=== PATIENT | female | born 1965 | race Caucasian/White ===

== ENCOUNTER 2023-10-16 09:34 | Emergency (ER) | payer OTHER, SELFPAY ==
[2023-10-16] VITALS (11 sets, daily range): BP systolic 152–184; BP diastolic 90–111; PULSE 76–84; RESP 13–26; TEMP 36.8; O2SAT 93–97; BMI 37.9
--- NOTE | 2023-10-16 09:42 | ECG_ITS ---
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
--- NOTE | 2023-10-16 09:42 | CT_ITS ---
The [address] [address] Patient Name: ADRIANE THAPA MRN: [id number] date: 1965 Sex: F Assigned Patient Location: ER Current Patient Location: ER Accession/Order Number: [id number] Exam Date: 10/16/2023 10:07 Report Date: 10/16/2023 10:25 At the request of: BARRERA OLVERA Procedure: CT head/brain wo con EXAM: CT head/brain wo con HISTORY: htn COMPARISON: None. TECHNIQUE: Axial CT images were obtained of the head without intravenous contrast. Multiplanar reconstructions were performed. FINDINGS: No acute intracranial hemorrhage. No acute loss of hodgson/white differentiation. The ventricles and sulci are normal in appearance. The osseous structures are unremarkable. No soft tissue abnormality identified. The paranasal sinuses and mastoid air cells are clear. CT/CT head/brain wo con IMPRESSION: 1. No acute intracranial abnormality. Electronically authenticated by: CATHY CEDEÑO Date: 10/16/2023 10:25
--- NOTE | 2023-10-16 09:44 | ED.GENADUL1 ---
HPI - General Adult General Chief complaint: Chest Pain Stated complaint: HIGH BLOOD PRESSURE Time Seen by Provider: 10/16/23 09:42 History of Present Illness HPI narrative: Patient is a 57-year-old female who is presenting to the Emergency Room with chief complaint of ongoing hypertension, headaches, and intermittent chest tightness. Patient says that she will intermittently feels sharp tingling prickling sensation to left anterior chest with no radiation for the past week or 2. Patient's been having headaches to left parietal area. Patient having mild neck pain. 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 Patient smokes cigarettes. Patient states the stress has been causing some neck pain and headaches. Patient went to the office today for blood pressure recheck for Flex Blanchard, nurse practitioner. Patient blood pressure is elevated, they called Dayna Blanchard who is not in the office and recommended patient come to the Emergency Room for evaluation. Patient drove to the Emergency Room. . All systems are negative except as noted/marked. All systems reviewed and otherwise negative. . Nurses note and vital signs reviewed and patient is not hypoxic. General: The patient appears well and in no apparent distress. Patient is resting comfortably on cart. Patient is not toxic, lethargic, or listless Skin: Warm, dry, no pallor noted. There is no rash noted. No petechiae, purpura. Head: Normocephalic, atraumatic, Patient has mild tenderness to palpation to bilateral paracervical soft tissue. Full range of motion of cervical spinal no difficulty But causing mild muscle pain. No meningeal signs or symptoms. No nuchal rigidity. Eye: Normal conjunctiva, no drainage, EOMI. PERRL Ears, Nose, Mouth, and Throat: oral mucosa is moist. Nares patent. Mouth without vesicles. Cardiovascular: Regular Rate and Rhythm, no murmur, gallop, rub. No reproducible tenderness to palpation to the left anterior chest wall. Respiratory: Patient is in no distress, no accessory muscle use, lungs are clear to auscultation, no wheezing, rales or rhonchi Back: non-tender, no CVA tenderness bilaterally to percussion. No CT LS midline pain GI: soft, no tenderness to palpation, no masses appreciated. No rebound, guarding, or rigidity noted. No flank pain bilateral, No distention Musculoskeletal: Patient has full range of motion of all of the extremities, no motor, sensory, or focal neurological deficits Neurological: A&O x3, normal speech Psychiatric: Cooperative Related Data Previous Rx's Medication Instructions Recorded methocarbamol 500 mg tablet 500 mg PO Q8H PRN muscle pain #10 10/16/23 tabs Allergies Allergy/AdvReac Type Severity Reaction Status Date / Time Penicillins AdvReac Intermediate Verified 10/16/23 09:41 Hugvvft-YDK-VhI Reductase AdvReac Intermediate Verified 10/16/23 09:41 Inhibitor PFSH PFSH Social History Smoking status: Current every day smoker Exam Constitutional Vital Signs, click to edit/add: Last Vital Signs Temp 98.2 F 10/16/23 09:41 Pulse 76 10/16/23 11:00 Resp 13 10/16/23 11:00 BP 184/101 H 10/16/23 10:40 Pulse Ox 97 10/16/23 11:00 O2 Del Method Room Air 10/16/23 09:41 Course Vital Signs Vital signs: Vital Signs Temperature 98.2 F 10/16/23 09:41 Pulse Rate 81 10/16/23 09:41 Respiratory Rate 18 10/16/23 09:41 Blood Pressure 163/111 H 10/16/23 09:41 Pulse Oximetry 96 10/16/23 09:41 Oxygen Delivery Method Room Air 10/16/23 09:41 Temperature 98.2 F 10/16/23 09:41 Pulse Rate 76 10/16/23 11:00 Respiratory Rate 13 10/16/23 11:00 Blood Pressure 184/101 H 10/16/23 10:40 Pulse Oximetry 97 10/16/23 11:00 Oxygen Delivery Method Room Air 10/16/23 09:41 Medical Decision Making [facility] Narrative Medical decision making narrative: Patient EKG, chest x-ray, lab work shows no acute changes. Patient's bilateral manual blood pressures were 150s/90s. Patient case was discussed with Dr. Her. Patient has been on lisinopril, patient switched to losartan 3 days ago. Patient will go to Dr. Her office now to make an appointment for next week. Doctor had. No other recommendations, patient's case was discussed on the phone. Lab Data Labs: Lab Results 10/16/23 Range/Units 09:51 WBC 6.4 (4.0-11.0) 10^3/uL RBC 4.95 (4.20-5.40) 10^6/uL Hgb 15.0 (12.0-16.0) g/dL Hct 45.4 (36.0-48.0) % MCV 91.7 (81.0-99.0) fL MCH 30.3 (26.7-34.0) pg MCHC 33.0 (29.9-35.2) g/dL RDW 12.7 (11.0-15.0) % Plt Count 185 (150-450) 10^3/uL MPV 9.6 (9.5-13.5) fL Neut % (Auto) 53.7 (43.0-75.0) % Lymph % (Auto) 37.2 (20.5-60.0) % [place] % (Auto) 5.7 (1.7-12.0) % Eos % (Auto) 2.0 (0.9-7.0) % Baso % (Auto) 0.9 (0.2-2.0) % Neut # (Auto) 3.4 (1.4-6.5) 10^3/uL Lymph # (Auto) 2.4 (1.2-3.8) 10^3/uL [place] # (Auto) 0.4 (0.3-0.8) 10^3/uL Eos # (Auto) 0.1 (0.0-0.7) 10^3/uL Baso # (Auto) 0.1 (0.0-0.1) 10^3/uL Abs Immat Gran (auto) 0.03 (0.00-0.03) 10^3/uL Imm/Tot Granulo (auto) 0.5 (0.0-0.5) % Sodium 143 (136-145) mmol/L Potassium 4.0 (3.5-5.1) mmol/L Chloride 106 (98-107) mmol/L Carbon Dioxide 24.5 (21.0-32.0) mmol/L Anion Gap 16.5 BUN 10.0 (7.0-18.0) mg/dL Creatinine 0.78 (0.55-1.02) mg/dL Est GFR ( Amer) >60 (>=60) Est GFR (Non-Af Amer) >60 (>=60) BUN/Creatinine Ratio 12.8 Glucose 123 H (74-106) mg/dL Calcium 9.3 (8.5-10.1) mg/dL Troponin I High Sens <4.0 L (4.0-51.3) pg/mL NT-Pro-B Natriuret Pep 72.0 (<=900.0) pg/mL Lipase 57.0 (16.0-77.0) U/L ECG Data Attestation: I personally reviewed and interpreted this ECG as follows: (EKG interpretation. Normal sinus rhythm 82 beats a minute. Normal axis deviation. No acute ST elevation, no acute ectopy. QTC of 416.) Discharge Plan Discharge Chief Complaint: Chest Pain Clinical Impression: Headache, Chest pain, Hypertension Patient Disposition: Home, Self-Care Condition: Fair Prescriptions / Home Meds: New methocarbamol 500 mg tablet 500 mg PO Q8H PRN (Reason: muscle pain) Qty: 10 0RF Instructions: Chest Pain (DC), Acute Headache (DC), Hypertension (ED) Additional Instructions: Continue taking her blood pressure medication as recommended. Follow-up with your PCP for further recommendations on blood pressure Use muscle relaxer as needed, perform cervical stretching exercises as shown at bedside 3 times a day for the next 2 weeks Continue using, Motrin as needed for headache. Return if significant headache, crushing chest pain, severe shortness of breath, passing out, or any other acute complaints. Stand Alone Forms: Portal Instructions Referrals: FLEX MORALES [Primary Care Provider] - 1 week Discharge Date/Time: 10/16/23 11:13
[2023-10-16 10:05] LABS: Basophils Absolute Auto 0.1 10^3/uL (0.0-0.1); Basophils Percent Auto 0.9 % (0.2-2.0); Eosinophils Absolute Auto 0.1 10^3/uL (0.0-0.7); Hematocrit 45.4 % (36.0-48.0); Immature Granulocytes Abs Auto 0.03 10^3/uL (0.00-0.03); Immature Granulocytes Pct Auto 0.5 % (0.0-0.5); Lymphocytes Absolute Auto 2.4 10^3/uL (1.2-3.8); Lymphocytes Percent Auto 37.2 % (20.5-60.0); Mean Corpuscular Hemoglobin 30.3 pg (26.7-34.0); Mean Corpuscular Volume 91.7 fL (81.0-99.0); Mean Platelet Volume 9.6 fL (9.5-13.5); Monocytes Absolute Auto 0.4 10^3/uL (0.3-0.8); Monocytes Percent Auto 5.7 % (1.7-12.0); Neutrophils Absolute Auto 3.4 10^3/uL (1.4-6.5); Neutrophils Percent Auto 53.7 % (43.0-75.0); Platelet Count 185 10^3/uL (150-450); Red Blood Count 4.95 10^6/uL (4.20-5.40); Red Cell Distribution Width 12.7 % (11.0-15.0); White Blood Count 6.4 10^3/uL (4.0-11.0)
[2023-10-16 10:38] LABS: Anion Gap 16.5; BUN Creatinine Ratio 12.8; Calcium 9.3 mg/dL (8.5-10.1); Carbon Dioxide 24.5 mmol/L (21.0-32.0); Chloride 106 mmol/L (98-107); Estimated GFR (African America >60 (>=60); Estimated GFR (Non-African Ame >60 (>=60); Glucose 123 mg/dL (74-106); Sodium 143 mmol/L (136-145); Troponin I High Sensitivity <4.0 pg/mL (4.0-51.3)
[2023-10-16] MEDS: KETOROLAC TROMETHAMINE 30 MG/ML VIAL IVP (11:06)
== END 2023-10-16 11:13 | disposition home or self-care (01) ==
PROVIDERS: Emergency Provider Emergency Medicine; PCP Nurse Practitioner Family
DX: I10 Essential (primary) hypertension (principal); R51.9 Headache, unspecified; R07.89 Other chest pain; F17.210 Nicotine dependence, cigarettes, uncomplicated
CPT/HCPCS: 36415; 70450; 80048; 83690; 83880; 84484; 85025; 93005; 96374; 99285